=== PATIENT | male | born 1975 | race Caucasian/White ===

== ENCOUNTER 2025-05-29 10:33 | Emergency (ER) | payer BC, OTHER ==
[~2025-05-29] VITALS: Ht 180.3 cm; Wt 87.0 kg
[2025-05-29 10:40] VITALS: TEMP 98.4
--- NOTE | 2025-05-29 11:05 | Physician Documentation ---
History of Present Illness General Chief Complaint: Finger pain Stated Complaint: THUMB LAC Time Seen by MD: 11:01 History of Present Illness Initial Comments Patient is a 50-year-old male who was trying to break up a fight between his two dogs got his left thumb bitten and partially avulsed. The patient states this occurred proximally 20 minutes prior to arrival he complains of pain and bleeding to the left thumb. Patient states his tetanus shot is up-to-date. The patient states he has sensation to the tip of the left thumb. The patient states he also has a an allergy to amoxicillin the patient's symptoms are mild to moderate and persistent Medication Reconciliation Allergies: Coded Allergies: amoxicillin (Verified Allergy, Intermediate, hives, 05/29/25) Scheduled Doxycycline Monohydrate (Doxycycline Monohydrate), 100 MG PO BID Metronidazole* (Flagyl*), 1 TAB PO Q12H Past Medical History Past Medical History: No Pertinent History Alcohol Use: None Drug Use: none Review of Systems All Other Systems at this time: Reviewed and Negative ROS Patient was asked, but denied any other symptoms. All other systems are negative other than those mentioned above. Physical Exam Physical Exam Vital Signs: Temperature: 98.4, Source: Temporal, Heart Rate: 94, Respiratory Rate: 18, BP: 120/61, Pulse Oximetry: 99, Weight: 87.000 Oxygen Flow Rate: 0 Physical Exam VITALS: Reviewed and as above. GENERAL: Alert, no apparent distress. HEENT: Normocephalic, atraumatic, PERRL, EOMI, dry mucosa, no erythema BACK: No CVA tenderness, or swelling MUSCULOSKELETAL: No deformities, no edema SKIN: Patient's thumb is the distal thumb is avulsed at the nail bed with fracture fragment exposed there was a 3 cm laceration that begins at the base of the thumb and extends over the lateral finger the fingertip is sensate and does have warmth and some redness to it, small amount of bleeding PSYCH: Normal mood and affect, no agitation Procedures Laceration/Wound Repair Laceration/Wound Repair : Location: left thumb Anesthesia: Lidocaine Repaired: skin Wound Repaired With: sutures Suture Size/Type: 6-0, 5-0, ethilon Procedure Note The hand was soaked and cleaned using 1000ml of saline. On thumb of left hand a digital block was performed using 8cc of lidocaine with no epi. There were 7 stitches to the volar aspect of the thumb using 4-0 ethilon and there was 1 stitch to the dorsal thumb. Progress Results/Orders Results/Orders Orders - RIVKA CUMMINS MD Wound Care Orders (05/29/25 11:05) General Nursing Order (05/29/25 11:05) Finger(S) (05/29/25 12:01) Completed Orders - RIVKA CUMMINS MD Cefazolin 1gm/D5w- Add-[place] (Ancef 1 (05/29/25 11:06) Doxycycline 100mg Capsule (Vibramycin 10 (05/29/25 11:11) Finger(S) (05/29/25 12:01) Vital Signs 05/29/25 05/29/25 05/29/25 10:40 11:39 12:26 Temp 98.4 Pulse 94 81 Resp 18 14 16 B/P (MAP) 120/61 116/87 Pulse Ox 99 97 O2 Flow Rate 0 EKG/XRAY/CT/US/VASC/MRI Bone/Soft Tissue X-Ray (Ext.) : Additional Comment CLINICAL INDICATION: LT.thumb TECHNIQUE: DI FINGER(S) left COMPARISON: None FINDINGS/IMPRESSION: : Comminuted and minimally displaced fracture of the distal phalanx of the 1st digit. Subtle cortical irregularity of the midpole of the scaphoid. This may represent artifact versus subtle nondisplaced fracture. Clinical correlation advised. Electronically Signed by:PATEL BARTON MD Date & Time: 05/29/25 1216 Reviewed by [facility] Ohlfs Consults/PCP Consults/PCP : Consult/PCP: Dr. Garber Additional Comment 1150: Dr. Garber was called at this time and shown photos of the patients dog bite. He agreed to see the patient and a referral was given at this time. Medical Decision Making Additional information obtaine: old records Findings Patient with a partial amputation of his finger from a dog bite case was discussed at length with the orthopedic surgeon the patient was given a digital block of the thumb he was copiously irrigated in the emergency department both under the sink and with a over a L of fluid and he was given antibiotics in the emergency department before he was lucid of the repaired with stitches the patient was given Ancef here in the emergency department he will be prescribed doxycycline and Flagyl he has been advised to return in 24 hours if he has any concerns about the wound itself and if he develops any redness pain or swelling that he should return in the emergency room immediately. Prior hospitalizations has been reviewed images were reviewed I reviewed the images that showed a, denuded fracture of the distal phalanx of the thumb there was some soft tissue swelling but no dislocation was appreciated my interpretation was comminuted fracture radiologist's interpretation was reviewed. Pulse oximetry was interpreted as normal and adequate Differential Diagnosis Fracture, amputation, cellulitis, Departure Time of Disposition: 11:56 Disposition: 01 HOME / SELF CARE / HOMELESS Impression: Primary Impression: Dog bite Qualified Codes: W54.0XXA - Bitten by dog, initial encounter Additional Impression: Thumb laceration Qualified Codes: S61.112A - Laceration without foreign body of left thumb with damage to nail, initial encounter Condition: Stable Discharge Instructions: Laceration Care, Adult, Plns-dz-Byeh Additional Instructions: Return to the emergency room for any new redness or swelling. Use Tylenol and Ibuprofen for pain. Follow up with Dr. Garber. Referrals: NO PRIMARY CARE PROVIDER (PCP) JOSIE GARBER Jr., MD Prescriptions Metronidazole* (Flagyl*) 500 Mg Tablet 1 TAB PO Q12H for 7 Days, #14 TAB Prov: RIVKA CUMMINS MD 05/29/25 Doxycycline Monohydrate (Doxycycline Monohydrate) 100 Mg Capsule 100 MG PO BID, #14 CAP may sub doxycycline hyclate Prov: RIVKA CUMMINS MD 05/29/25 Education Educated: Patient, Family Educated regarding: diagnosis, treatment, need for follow up Signature Scribe Signature: Scribed by Malka (departure/procedures) Attestation: The note accurately reflects work and decisions made by me.Rivka Cummins MD 05/30/25 17:49 RIVKA CUMMINS MD May 29, 2025 11:04
[2025-05-29] MEDS: DOXYCYCLINE 100MG CAPSULE PO STA (11:21)
[2025-05-29] MEDS: ceFAZolin 1GM/D5W- ADD-VANTAGE 50 ML IV STA (11:21)
[2025-05-29] MEDS ORDERED: METR-159 PO (12:04)
[2025-05-29] MEDS ORDERED: DOXY100C43 PO (12:04)
--- NOTE | 2025-05-29 12:18 | RADIOLOGY REPORT ---
CLINICAL INDICATION: LT.thumb TECHNIQUE: DI FINGER(S) left COMPARISON: None FINDINGS/IMPRESSION: : Comminuted and minimally displaced fracture of the distal phalanx of the 1st digit. Subtle cortical irregularity of the midpole of the scaphoid. This may represent artifact versus subtle nondisplaced fracture. Clinical correlation advised.
[2025-05-29 12:26] VITALS: BP 116/87; PULSE 81; RESP 16; O2SAT 97
== END 2025-05-29 12:30 | disposition home or self-care (01) ==
LOC: ER 10:33
DX: S61.052A Open bite of left thumb without damage to nail, initial encounter (principal); Z88.1 Allergy status to other antibiotic agents; W54.0XXA Bitten by dog, initial encounter; Y93.89 Activity, other specified; Y92.89 Other specified places as the place of occurrence of the external cause; Y99.8 Other external cause status
CPT/HCPCS: 12002; 73140; 96365; 99284; A6222; J0690; A6449